=== PATIENT | male | born 1990 | race Caucasian/White ===

== ENCOUNTER 2022-01-18 15:59 | Outpatient (CLI) | payer OTHER, SELFPAY ==
[2022-01-24 18:08] LABS: Beef <0.10 kU/L (Class 0); Corn <0.10 kU/L (Class 0); Egg, Whole <0.10 kU/L (Class 0); Milk (Cow) <0.10 kU/L (Class 0); Peanut <0.10 kU/L (Class 0); Pork <0.10 kU/L (Class 0); Soybean <0.10 kU/L (Class 0); Wheat 0.25 kU/L (Class 0/I)
[2022-01-25 12:58] LABS: Chocolate <0.10 kU/L (Class 0)
== END 2022-01-18 23:59 | disposition home or self-care (01) ==
LOC: LAB 16:02
PROVIDERS: Referring Provider Internal Medicine Gastroenterology; Visit Provider Internal Medicine Gastroenterology
DX: K21.9 Gastro-esophageal reflux disease without esophagitis (principal)
CPT/HCPCS: 36415; 86003; 86005